=== PATIENT | female | born 1955 | race Caucasian/White ===

== ENCOUNTER 2019-07-28 17:00 | Observation (INO) | payer OTHER ==
[~2019-07-28] VITALS: Ht 157.5 cm; Wt 68.0 kg
[~2019-07-28 17:00] MED LIST: SYNTHROID112 MCG PO
--- OUTSIDE RECORDS SUMMARY | 2019-07-28 17:03 | XMS REPORT ---
Author Author [facility] Address Unknown Phone Unavailable Care Team Providers Care Manager Process Improvement Name Role Phone ABHISHEK BURK Unavailable Unavailable Payers Payer Name Policy Type Policy Number Effective Date Expiration Date Problems This patient has no known problems. Allergies, Adverse Reactions, Alerts Allergy Name Allergy Type Status Severity Reaction(s) Onset Date Inactive Date Treating Clinician Comments No Known Allergies DA Active U 2018-07-29 00:00:00 No Known Allergies DA Active U 2011-08-19 00:00:00 Medications This patient has no known medications. Results Test Description Test Time Test Comments Text Results Atomic Results Result Comments LIPID PROFILE (CORONARY RISK) 2018-07-30 19:44:00 TRIGLYCERIDES (test code=TRIG) 148 mg/dL 20-150 CHOLESTEROL (test code=CHOL) 218 mg/dL 0-200 CHOLESTEROL/HDL RATIO (test code=CHOLHDL) 4.0 RATIO 0-4.9 RISK ASSOCIATED WITH CHOL/HDL RATIOS: Risk Male Female1/2 AVERAGE 3.43 3.27AVERAGE 4.97 4.442X AVERAGE 9.55 7.053X AVERAGE 23.39 11.04 REFERENCE VALUE IS RELATED TO RISK LEVELS ASRECOMMENDED BY THE [facility]. HEART, LUNG, AND BLOOD INST. HDL CHOLESTEROL (test code=HDL) 53 mg/dL 40-60 LIPOPROTEIN LDL (test code=LDL) 133 mg/dL 100-129 RN PERSONNEL, CONTACT PHYSICIAN IMMEDIATELY IF THIS IS A STROKE, AMI OR CAROTID STENOSIS PATIENT WHEN THE LDL >100 (1ST OCCURENCE, THIS ADMISSION) Reference Interval: mg/dL mmol/L Optimal <100 <2.6Near/above optimal 100-129 2.6- 3.3Borderline High 130-159 3.4-4.1High 160-189 4.1-4.9Very High >=190 >=4.9=========This LDL result is a direct measurement.========= - MRI C-SPINE W/O [id number] 10:30:00 FAX: Mike Chiledrs MD [phone] [place]: St: [facility] FAX: Abhishek Harmon MD [phone] Name: PETRONA SCHULZ [facility] : 1955 Age/S: 62/F [address] [facility] Unit #: [id number] Loc: [address] [place] [address] Phys: Mike Dang MD Acct: [id number] Dis Date: Status: ADM IN PHONE #: [phone] Exam Date: 07/30/2018 0900 FAX #: [phone] Reason: neck pain EXAMS: CPT CODE: [id number] MRI C-SPINE W/O CONT 85917 HISTORY: Neck pain. COMPARISON: None available. MRI cervical spine without contrast: Automated exposure control. No cerebellar ectopia. No cord compression, syrinx or myelomalacia. Vertebral body heights are maintained. Bone marrow signal is normal. No prevertebral soft tissue swelling. Disc spaces are preserved. At C2-C3 level no disc herniation, canal or foraminal stenosis. At C3-C4 level no disc herniation, canal or foraminal stenosis. At C4-C5 level no disc herniation, canal or foraminal stenosis. At C5-C6 level no disc herniation, canal or foraminal stenosis. At C6-C7 level no disc herniation, canal or foraminal stenosis. At C7-T1 level no disc herniation, canal or foraminal stenosis. IMP RESSION: No disc herniation, canal or foraminal stenosis. No cord compression, syrinx or myelomalacia. Vertebral body heights are maintained. Bone marrow signal is normal. At C7-T1 level no disc herniation, canal or foraminal stenosis. Electronic ally Signed by Farzad Osman on 07/30/2018 at 1030 R eported and signed by: Raul Osman M.D. CC: Mike Dang; Leisa Burk MD Technologist: ROSA M WALLSRT - MRI [facility] Date/Time/By: 07/30/2018 (1030) : By: [email or web address] Orig Print D/T: S: 07/30/2018 (2555) PAGE 1 Signed Report - MRI BRAIN W/O CONTRAST 2018-07-30 09:25:00 FAX: Juan Ramon Benavides MD [phone] [place]: St: [facility] FAX: Mike Childers MD [phone] FAX: Abhishek Harmon MD [phone] Name: PETRONA SCHULZ [facility] : 1955 Age/S: 62/F [address] [facility] Unit #: [id number] Loc: [address] [place] [address] Phys: Juan Ramon Pearson MD Acct: [id number] Dis Date: Status: ADM IN ONE #: [phone] Exam Date: 07/30/2018 0845 FAX #: [phone] Reason: Syncope/?CVA EXAMS: CPT CODE: [id number] MR I BRAIN W/O CONTRAST 10274 HISTORY: Synco pe and CVA. COMPARISON: Head CT from previous day. M RI brain without contrast: Small acute lacunar infarct in the left frontal parietal centrum semiovale white matter. No large territorial vas cular infarction. No MR evidence for hemorrhage is noted. No extra-axial f luid collections are noted. Mild periventricular white matter ischemic khushi nges scattered lesions in bilateral centrum semiovale white matter. No herniation, hydrocephalus or midline shift. Fourth ventricle is midline. Expected flow-voids are noted within the major intracranial vasculature. VII and VIII nerve complex are symmetrical and normal. Mast oid air cells are clear. Sinuses straightening no air-fluid levels. The in traorbital contents are unremarkable. Midbrain, yuki and medulla a re without mass effect. No cerebellar ectopia. Pituitary gland, optic sussy sm and corpus callosum are normal. Clivus with normal marrow signal symmet rical hippocampi without mesial temporal sclerosis. IMPRES CLINT: Acute lacunar infarct in the left frontal/parietal centr um semiovale white matter. Chronic white matter ischemic disease in the cortical and the subcortical deep white. Electronically Sign ed by Farzad Osman on 07/30/2018 at 0925 Reported a nd signed by: Raul Osman M.D. CC: Juan Ramon Pearson MD; Mike Dang Deepak MD Technologist: ROSA M WALLSRT - MRI [facility] Date/Time/By: 07/30/2018 (0925) : By: [email or web address] Orig Print D/T: S: 07/30/2018 (2773) PAGE 1 Signed Report [id number] 18:37:00* Test Item Value Reference Range Comments TROPONIN-I (test code=TROPI) 0.106 ng/mL 0-0.045 COMMENTS TO HOME WEATHERIZING WORKER: COLLECT 3 HOURS AFTER PREVIOUS [id number] 14:02:00* Test Item Value Reference Range Comments TROPONIN-I (test code=TROPI) 0.126 ng/mL 0-0.045 Results called to [id number]\RF Arrays V.LAB.KN 07/29/18 1402Critical results verified and read back by Nurse? Y COMMENTS TO HOME WEATHERIZING WORKER: COLLECT 3 HOURS AFTER PREVIOUS [id number] 14:02:00* Test Item Value Reference Range Comments TROPONIN-I (test code=TROPI) 0.126 ng/mL 0-0.045 Results called to [id number]\RF Arrays V.LAB.[facility] 07/29/18 1402Critical results verified and read back by Nurse? Y COMMENTS TO HOME WEATHERIZING WORKER: COLLECT 3 HOURS AFTER PREVIOUS SAMPLEURINALYSIS [id number] 12:13:00* Test Item Value Reference Range Comments UA COLOR (test code=COLU) LIGHT YELLOW YELLOW UA APPEARANCE (test code=APPU) CLEAR CLEAR UA GLUCOSE DIPSTICK (test code=DGLUU) NEGATIVE mg/dL NEGATIVE UA BILIRUBIN DIPSTICK (test code=BILU) NEGATIVE mg/dL NEGATIVE UA KETONE DIPSTICK (test code=KETU) NEGATIVE mg/dL NEGATIVE UA SPECIFIC GRAVITY (test code=SGU) 1.011 1.001-1.035 UA BLOOD DIPSTICK (test code=CARLOS) 1+ (Small) mg/dL NEGATIVE UA PH DIPSTICK (test code=NAHID) 6.0 5.0-8.0 UA PROTEIN DIPSTICK (test code=PROU) NEGATIVE mg/dL NEGATIVE UA UROBILINIOGEN DIPSTICK (test code=URO) NEGATIVE mg/dL NEGATIVE UA NITRITE DIPSTICK (test code=SHEYLA) NEGATIVE NEGATIVE UA LEUKOCYTE ESTERASE W REFLEX (test code=LEUUR) NEGATIVE Mar/uL NEGATIVE UA WBC (test code=WBCU) 0-5 per HPF 0-5 UA RBC (test code=RBCU) 0-2 #/HPF 0-5 UA EPITHELIAL CELLS (test code=EPIU) FEW per HPF FEW UA BACTERIA (test code=BACU) MANY #/HPF NONE UA HYALINE CAST (test code=HYALU) 6-10 #/LPF 0-5 UA MUCUS (test code=MUCU) FEW #/LPF FEW Urine Source? Clean CatchDRUGS OF ABUSE SCREEN [id number] 12:13:00* Test Item Value Reference Range Comments URN COCAINE (test code=COCAURN) NEGATIVE <300 ng/mL URN CANNABINOIDS (test code=CANNABURN) NEGATIVE <50 ng/mL URN AMPHETAMINE (test code=AMPHETURN) NEGATIVE <1000 ng/mL URN BARBITURATE (test code=BARBITURN) NEGATIVE <200 ng/mL URN BENZODIAZEPINE (test code=BENZOURN) NEGATIVE <200 ng/mL URN OPIATES (test code=OPIATURN) POSITIVE <300 ng/mL This test provides only a preliminary test result. A morespecific alternate chemical method must be used in order toobtain a confirmed analytical result. Gas chromatography/mass spectrometry (GC/MS) is thepreferred confirmatory method. Other chemical confirmationmethods are available. Clinical consideration and professional judgment should be applied to any drug of abusetest result, particularly when preliminary positive resultsare used.Unconfirmed screening results must not be used fornon-medical purposes (e.g., employment testing, legaltesting). URN PHENCYCLIDINE (PCP) (test code=PHENCURN) NEGATIVE <25 ng/mL URN METHADONE (test code=METHAURN) NEGATIVE <300 ng/mL Urine Source? Clean CatchURINALYSIS [id number] 11:41:00* Test Item Value Reference Range Comments UA COLOR (test code=COLU) LIGHT YELLOW YELLOW UA APPEARANCE (test code=APPU) CLEAR CLEAR UA GLUCOSE DIPSTICK (test code=DGLUU) NEGATIVE mg/dL NEGATIVE UA BILIRUBIN DIPSTICK (test code=BILU) NEGATIVE mg/dL NEGATIVE UA KETONE DIPSTICK (test code=KETU) NEGATIVE mg/dL NEGATIVE UA SPECIFIC GRAVITY (test code=SGU) 1.011 1.001-1.035 UA BLOOD DIPSTICK (test code=CARLOS) 1+ (Small) mg/dL NEGATIVE UA PH DIPSTICK (test code=NAHID) 6.0 5.0-8.0 UA PROTEIN DIPSTICK (test code=PROU) NEGATIVE mg/dL NEGATIVE UA UROBILINIOGEN DIPSTICK (test code=URO) NEGATIVE mg/dL NEGATIVE UA NITRITE DIPSTICK (test code=SHEYLA) NEGATIVE NEGATIVE UA LEUKOCYTE ESTERASE W REFLEX (test code=LEUUR) NEGATIVE Mar/uL NEGATIVE UA WBC (test code=WBCU) 0-5 per HPF 0-5 UA RBC (test code=RBCU) 0-2 #/HPF 0-5 UA EPITHELIAL CELLS (test code=EPIU) FEW per HPF FEW UA BACTERIA (test code=BACU) MANY #/HPF NONE UA HYALINE CAST (test code=HYALU) 6-10 #/LPF 0-5 UA MUCUS (test code=MUCU) FEW #/LPF FEW Urine Source? Clean CatchDRUGS OF ABUSE SCREEN [id number] 11:41:00* Test Item Value Reference Range Comments URN COCAINE (test code=COCAURN) <300 ng/mL URN CANNABINOIDS (test code=CANNABURN) <50 ng/mL URN AMPHETAMINE (test code=AMPHETURN) <1000 ng/mL URN BARBITURATE (test code=BARBITURN) <200 ng/mL URN BENZODIAZEPINE (test code=BENZOURN) <200 ng/mL URN OPIATES (test code=OPIATURN) <300 ng/mL URN PHENCYCLIDINE (PCP) (test code=PHENCURN) <25 ng/mL URN METHADONE (test code=METHAURN) <300 ng/mL Urine Source? Clean CatchURINALYSIS [id number] 11:39:00* Test Item Value Reference Range Comments UA COLOR (test code=COLU) LIGHT YELLOW YELLOW UA APPEARANCE (test code=APPU) CLEAR CLEAR UA GLUCOSE DIPSTICK (test code=DGLUU) NEGATIVE mg/dL NEGATIVE UA BILIRUBIN DIPSTICK (test code=BILU) NEGATIVE mg/dL NEGATIVE UA KETONE DIPSTICK (test code=KETU) NEGATIVE mg/dL NEGATIVE UA SPECIFIC GRAVITY (test code=SGU) 1.011 1.001-1.035 UA BLOOD DIPSTICK (test code=CARLOS) 1+ (Small) mg/dL NEGATIVE UA PH DIPSTICK (test code=NAHID) 6.0 5.0-8.0 UA PROTEIN DIPSTICK (test code=PROU) NEGATIVE mg/dL NEGATIVE UA UROBILINIOGEN DIPSTICK (test code=URO) NEGATIVE mg/dL NEGATIVE UA NITRITE DIPSTICK (test code=SHEYLA) NEGATIVE NEGATIVE UA LEUKOCYTE ESTERASE W REFLEX (test code=LEUUR) NEGATIVE Mar/uL NEGATIVE UA WBC (test code=WBCU) per HPF 0-5 Urine Source? Clean CatchDRUGS OF ABUSE SCREEN [id number] 11:39:00* Test Item Value Reference Range Comments URN COCAINE (test code=COCAURN) <300 ng/mL URN CANNABINOIDS (test code=CANNABURN) <50 ng/mL URN AMPHETAMINE (test code=AMPHETURN) <1000 ng/mL URN BARBITURATE (test code=BARBITURN) <200 ng/mL URN BENZODIAZEPINE (test code=BENZOURN) <200 ng/mL URN OPIATES (test code=OPIATURN) <300 ng/mL URN PHENCYCLIDINE (PCP) (test code=PHENCURN) <25 ng/mL URN METHADONE (test code=METHAURN) <300 ng/mL Urine Source? Clean CatchB-TYPE NATRIURETIC [id number] 09:56:00* Test Item Value Reference Range Comments B-TYPE NATRIURETIC PEPTIDE (test code=BNP) 7.73 pgram/mL 0-100 BASIC METABOLIC [id number] 09:04:00* Test Item Value Reference Range Comments SODIUM (test code=NA) 142 mmol/L 136-145 POTASSIUM (test code=K) 3.5 mmol/L 3.5-5.1 CHLORIDE (test code=CL) 110.0 mmol/L 98-107 CARBON DIOXIDE (test code=CO2) 22.0 mmol/L 21-32 ANION GAP (test code=GAP) 13.5 10-20 GLUCOSE (test code=GLU) 159 mg/dL 74-106 BLOOD UREA NITROGEN (test code=BUN) 15 mg/dL 7-18 GLOMERULAR FILTRATION RATE (test code=GFR) 56 mL/min >=60 Estimated GFR by using Modified MDRD formula.Chronic kidney disease is defined as either kidney damageor GFR <60 mL/min/1.73 m2 for >3 months. CREATININE (test code=CREAT) 1.00 mg/dL 0.55-1.02 Note change in reference range due to change in reagent. BUN/CREATININE RATIO (test code=BUN/CREA) 15.0 10-20 CALCIUM (test code=CA) 8.9 mg/dL 8.5-10.1 HEPATIC FUNCTION [id number] 09:04:00* Test Item Value Reference Range Comments TOTAL PROTEIN (test code=PROT) 7.3 gram/dL 6.4-8.2 ALBUMIN (test code=ALB) 3.9 g/dL 3.4-5.0 GLOBULIN (test code=GLOB) 3.4 gram/dL 2.7-4.2 ALBUMIN/GLOBULIN RATIO (test code=A/G) 1.2 0.75-1.50 BILIRUBIN TOTAL (test code=BILT) 0.40 mg/dL 0.0-1.0 BILIRUBIN DIRECT (test code=BILD) 0.08 mg/dL 0.0-0.20 SGOT/AST (test code=AST) 12 IUnit/L 15-37 SGPT/ALT (test code=ALT) 17 IUnit/L 12-78 ALKALINE PHOSPHATASE TOTAL (test code=ALKP) 79 IUnit/L 45-117 Note change in reference range due to change in reagent. [id number] 09:04:00* Test Item Value Reference Range Comments LIPASE (test code=LIP) 120 U/L 73.0-393.0 [id number] 09:04:00* Test Item Value Reference Range Comments MAGNESIUM (test code=MAG) 2.4 mg/dL 1.8-2.4 THYROID PROFILE [id number] 09:04:00* Test Item Value Reference Range Comments T3 UPTAKE (test code=T3UP) 34.0 % 30.0-40.0 T4 (THYROXINE) (test code=T4) 11.6 ug/dL 4.5-13.9 T7 (FREE THYROXINE INDEX) (test code=T7) 3.94 FTI 1.3-5.1 THYROID STIMULATING HORMONE (test code=TSH) 33.000 uIU/mL 0.36-3.74 TSH REFERENCE RANGES: EUTHYROID: 0.35 - 4.3 mIU/mL HYPO : > 5.5 mIU/mL HYPER : < 0.35 mIU/mL [id number] 09:04:00* Test Item Value Reference Range Comments TROPONIN-I (test code=TROPI) <0.015 ng/mL 0-0.045 - CT HEAD/BRAIN W/O [id number] 08:53:00 Name: PETRONA SCHULZ [facility] : 1955 Age/S: 62 / F [address] Unit #: [id number] Loc: [place] [address] Phys: Jorge Luis Cat MD Acct: [id number] Dis Date: Status: REG ER PHONE #: [phone] Exam Date: 07/29/2018845 FAX #: [phone] Reason: syncope, fall, possible new onset seizure EXAMS: CPT CODE: [id number] CT HEAD/BRAIN W/O CONT 11668 HISTORY: Syncope and fall. COMPARISON: None available. CT brain without contrast: Automated exposure control. No acute intracranial bleeds or extra-axial collections are noted. No acute territorial vascular infarction is noted. The sulci, gyri, ventricles and subarachnoid spaces and the basilar cisterns are normal for patient's age. No herniation or hydrocephalus or midline shift is noted. Mild periventricular ischemic gliosis is noted. Age-appropriate atrophy is noted as well. Portions of the visualized paranasal sinuses are normal. No obvious bony calvarial defect is noted. IMPRESSION: No acute intracranial bleeds or extra-axial collections. No acute territorial vascular infarction. No herniation or hy drocephalus or midline shift. Chronic white matter ischemic d isease and atrophy . at 0853 Reported and kailey d by: Raul Osman M.D. CC: Jorge Luis Cat MD Technologist:Jeffrey Moreland RT(R)(CT) CTDI: DLP: Trnscb Date/Time: 07/29/2018 (0853) [email or web address] Orig Print D/T: S: 07/29/2018 (0856) CTDI: DLP: PAGE 1 Signed Report - XR CHEST 1 [id number] 08:40:00 FAX: Jorge Luis Cat [place]: B St: REG Name: PETRONA PHOENIX [facility] : [birth year] Age/S: 62/F [address] Unit #: [id number] Loc: [place] [address] Phys: Jorge Luis Cat MD Acct: [id number] Dis Date: Status: REG ER PHONE #: [phone] Exam Date: 07/29/2018829 FAX #: [phone] Reason: CHEST PAIN EXAMS: CPT CODE: [id number] XR CHEST 1 V 27509 HISTORY: Chest pain. COMPARISON: None available. No acute infiltrates, effusion or con gestion is noted. The cardiac and mediastinal silhouette are withi n normal limits. IMPRESSION: No acute infilt rates, effusion or congestion. at 0840 Reported and signed by: Argentina Osman M.D. CC: Jorge Luis Cat MD Technologist: Sussy Velázquez(Theodore); STUDENT TECHNOLOGIST Trnscrd Date/Time/By: 07/29/2018 (0840) : By: [email or web address] Orig Print D/T: S: 07/29/2018 (0467) PAGE 1 Signed Report CBC W/O [id number] 08:24:00 * Test Item Value Reference Range Comments WHITE BLOOD CELL (test code=WBC) 12.5 K/mm3 4.5-12.5 RED BLOOD CELL (test code=RBC) 4.58 mill/mm3 3.7-5.2 HEMOGLOBIN (test code=HGB) 14.4 gram/dL 11.5-15.5 HEMATOCRIT (test code=HCT) 45.2 % 36.0-46.0 MEAN CELL VOLUME (test code=MCV) 98.7 fL 80-98 MEAN CELL HGB (test code=MCH) 31.4 picogram 27.0-33.0 MEAN CELL HGB CONCETRATION (test code=MCHC) 31.9 gram/dL 33.0-36.0 RED CELL DISTRIBUTION WIDTH (test code=RDW) 13.3 % 11.6-16.2 PLATELET COUNT (test code=PLT) 359 K/mm3 150-450 MEAN PLATELET VOLUME (test code=MPV) 9.1 fL 6.7-11.0 CT BRAIN WO [place] [address] Patient Name: PETRONA SCHULZ MR #: [id number] : 1955 Age/Sex: 61/F Req #: [id number] Adm Physician: Ordered by: ABHISHEK BURK MD Report #: [id number] Location: CT Room/Bed: Procedure: [id number] CT/CT BRAIN WO Exam Date : 02/08/17 Exam Time: 1029 REPORT STATUS: Kailey d EXAMINATION: Head CT HISTORY: Right facial numbness for last 2 days COMPARISON: None. TECHNIQUE: Multidetector axial images were obtained without contrast from the foramen magnum to the vertex . The images were reconstructed using brain and bone algorithms. Thin section brain images were reformatted into coronal and sagittal planes. Intravenous contrast: None. Motion/str eaking artifact limits the evaluation of the skull base and posterior cranial fossa. FINDINGS: Parenchyma: 1. Nonspecific approximately 1 c m discrete oval-shaped hypodensity in the left inferior parietal and right mid dle frontal gyrus juxtacortical white matter may represent nonspecific chronic microvascular ischemic changes, other consideration would include acute vascu lar insult, or demyelinating processes given the distribution of the lesions a nd otherwise unremarkable brain parenchyma. 2. No mass or hemorrhage. No CT evidence of acute territorial vascular insult. Extra-axial spa rex:No abnormal density. No extra-axial fluid collections Brain volume: Normal for age. Ventricles: No hydrocephalus or displacement. A rteries: No density suggestive of thrombus. Dural sinuses: No abnormal d ensity. Extra-axial spaces: No abnormal density. Foramen magnum: No mass, Chiari malformation, or basilar invagination. Sella: No obvious mass. Paranasal/mastoid sinuses: Imaged portions unremarkable. Skull/Scalp: No lytic or blastic lesions. No fractures. IMPRESSION: Nonspecific hypodensities in the right frontal and left parietal juxtacortical white matter, which may represent chronic microvascular ischemic changes, h owever acute ischemia or perhaps demyelinating process are also a consideratio n only in the appropriate clinical setting, a brain MRI without and with contr ast is recommended for further evaluation. Signed by: Dr. Leslie Deluna M.D. on 02/08/2017 11:20 AM Dictated By: LESLIE DELUNA MD 1120 Transcribed By: LIVIER on 02/08/17 1120 COPY TO: ABHISHEK BURK MD
--- NOTE | 2019-07-28 17:08 | NUR ---
ATTEMPTED TO TAKE PATIENT TO ER ROOM 3 AFTER TRIAGE - PATIENT BECAME INVOLVED IN A CONVERSATION WITH HER , AND WOULD NOT COME TO THE ROOM. PATIENT REQUESTED SOME TIME TO SPEAK WITH HER AND THEN WOULD COME TO THE ROOM WHEN SHE WAS READY.
[2019-07-28 18:18] LABS: BASOPHILS % 0.5 % (0.0-1.0); EOSINOPHILS # (AUTO) 0.1 (0.0-0.4); EOSINOPHILS % 1.1 % (0.0-6.0); HEMATOCRIT 42.3 % (34.2-44.1); HEMOGLOBIN 14.5 g/dL (12.0-16.0); LYMPHOCYTES # (AUTO) 1.4 (1.0-3.2); LYMPHOCYTES % 19.2 % (18.0-39.1); MEAN CORPUSCULAR HEMOGLOBIN 31.9 pg (28-32); MEAN CORPUSCULAR HGB CONC 34.3 g/dL (31-35); MONOCYTES # (AUTO) 0.5 (0.2-0.8); MONOCYTES % 6.8 % (4.4-11.3); NEUTROPHILS # (AUTO) 5.3 (2.1-6.9); NEUTROPHILS % 72.1 % (38.7-80.0); PLATELET COUNT 348 x10e3/uL (140-360); RED BLOOD COUNT 4.55 x10e6/uL (3.6-5.1); RED CELL DISTRIBUTION WIDTH 13.5 % (11.7-14.4)
--- NOTE | 2019-07-28 18:19 | Diagnostic Imaging Report ---
CT BRAIN WO HISTORY: Trouble with speech COMPARISON: Head CT report dated 02/08/2017 (images not available at time of dictation) Technique: Noncontrast axial scans were obtained from skull base to the vertex. Coronal and sagittal reconstructions obtained from the axial data. One or more of the following dose reduction techniques were used: Automated exposure control, adjustment of the mA and/or kV according to patient size, and/or utilization of iterative reconstruction technique. DISCUSSION: Scalp/Skull: Unremarkable. Brain sulci: Mildly prominent. Ventricles: Compensatory dilatation. Extra-axial spaces: No masses or fluid collections. Carotid siphon calcifications are present. Parenchyma: Focal hypodensities in the right anterior centrum semiovale, right anterior nguyen radiata, and left nguyen radiata may be due to age indeterminate ischemia; there is no significant mass effect or associated acute hemorrhage. Hypodensities were seen in these regions per prior report; however, any changes cannot be evaluated since prior images are not available for review. Mild bilateral deep white matter hypodensity is likely chronic microvascular ischemic change. Otherwise, no masses, hemorrhage, or large vascular territory acute infarct. Dural sinuses: No abnormal densities. Sellar/Suprasellar region: Intact. Skull base: Intact. Incidental findings: None. IMPRESSION: 1. Focal hypodensities in the right anterior centrum semiovale, right anterior nguyen radiata, and left nguyen radiata may be due to age indeterminate ischemia or demyelination. Hypodensities were seen in these regions per prior report; however, any changes cannot be evaluated since prior images are not available for review. 2. No other acute intracranial abnormalities. 3. Mild supratentorial chronic microvascular ischemic change. Mild generalized cerebral volume loss. Signed by: Dr. Gordo Moore M.D. on 07/28/2019 6:16 PM
[2019-07-28 18:36] LABS: INR 0.81; PARTIAL THROMBOPLASTIN TIME 25.6 seconds (23.8-35.5); PROTHROMBIN TIME 11.7 seconds (11.9-14.5)
--- NOTE | 2019-07-28 18:36 | Diagnostic Imaging Report ---
EXAMINATION: CHEST 2 VIEWS INDICATION: ^WEAK ^[id number] ^[id number] COMPARISON: Chest radiograph 06/09/2012 FINDINGS: PA and lateral views TUBES and LINES: None. LUNGS: Lungs are well inflated. Lungs are clear. There is no evidence of pneumonia or pulmonary edema. PLEURA: No pleural effusion or pneumothorax. HEART AND MEDIASTINUM: The cardiomediastinal silhouette is unremarkable. BONES AND SOFT TISSUES: No acute osseous lesion. Soft tissues are unremarkable. UPPER ABDOMEN: No free air under the diaphragm. IMPRESSION: No acute thoracic abnormality. Signed by: Dr. Kate Lombardi M.D. on 07/28/2019 6:33 PM
[2019-07-28 18:46] LABS: ALANINE AMINOTRANSFERASE 22 IU/L (0-55); ALBUMIN 3.7 g/dL (3.5-5.0); ALBUMIN/GLOBULIN RATIO 1.3 (0.8-2.0); ALKALINE PHOSPHATASE 65 IU/L (40-150); ANION GAP 13.3 mmol/L (8-16); BLOOD UREA NITROGEN 14 mg/dL (7-26); BUN/CREATININE RATIO 14 (6-25); CALCIUM 9.5 mg/dL (8.4-10.2); CARBON DIOXIDE 24 mmol/L (22-29); CHLORIDE 108 mmol/L (98-107); CREATINE KINASE 40 IU/L (29-168); CREATININE, SERUM 0.99 mg/dL (0.57-1.11); EST GLOMERULAR FILTRATION RATE 56 ML/MIN (60-); GLUCOSE 113 mg/dL (74-118); POTASSIUM 4.3 mmol/L (3.5-5.1); SODIUM 141 mmol/L (136-145)
--- NOTE | 2019-07-28 20:15 | NUR ---
Patient was brought to the unit from er in a wheel chair.aaox4.assessment done.no resp.distress .no pain voiced.tele #[address] sinus rhythm.oriented to the unit.bed locked and in lowest position.phone and call light within reach.instructed to call for assistance as needed.as per the report from er carotid doppler to be done morning .
[2019-07-28 20:35] VITALS: BP 90/60
[2019-07-28 21:00] VITALS: BP 156/64
[2019-07-28 23:00] VITALS: BP 156/64
[2019-07-29] VITALS: BP 96/57
[2019-07-29] MEDS ORDERED: ACETAMINOPHEN 325 MG TAB PO ONE (01:15)
[2019-07-29] MEDS ORDERED: ACETAMINOPHEN 325 MG TAB PO PRN (02:30)
[2019-07-29 04:00] VITALS: BP 94/54
[2019-07-29 06:00] LABS: CREATINE KINASE 28 IU/L (29-168)
--- NOTE | 2019-07-29 07:05 | NUR ---
Bed side shift report given to oncoming RN.stable condition.
[2019-07-29 07:25] LABS: CHOL/HDL RATIO 3.1 (3.0-3.6)
[2019-07-29] MEDS ORDERED: LEVOTHYROXINE SODIUM 112 MCG TAB PO SCH (07:45)
[2019-07-29 07:47] LABS: FREE THYROXINE INDEX 2.2862 (1.4-3.8); THYROID STIMULATING HORMONE 3.483 uIU/mL (0.350-4.940)
[2019-07-29 08:15] VITALS: BP 96/52
--- NOTE | 2019-07-29 08:25 | History and Physical ---
CHIEF COMPLAINT: The patient is a 63-year-old lady, who comes in with momentary aphasia. HISTORY OF PRESENTING ILLNESS: Ms. Ewing with a history of previous TIA, has history of CVA, and was in usual state of health until the patient is having no complaints. Talking to her and suddenly for a period of 30-40 seconds, the patient had a period of aphasia where nothing could come out. The patient had global aphasia and lasted about 30 seconds according the patient. The patient went into a panic mode, anxiety kicked in, the patient started looking for other signs. No other signs were seen. The patient did not have any weakness, focal weakness, or any visual disturbances. Gait was normal at that time and no swallowing difficulties at that time. This made the patient newsome into the hospital, was admitted to the hospital for TIA, rule out CVA. PAST MEDICAL HISTORY: History of TIA, history of CVA, history of hypothyroidism. PAST SURGICAL HISTORY: Noncontributory. MEDICATIONS: She takes at home levothyroxine 112 mcg. No statins were taken at this time. ALLERGIES: NO DRUG ALLERGIES NOTED. SOCIAL HISTORY: No EtOH. Nonsmoker and lives with in good social support. FAMILY HISTORY: Positive for hypertension and hyperlipidemia. REVIEW OF SYSTEMS: Negative for chest pain. No shortness of breath. No palpitation. No signs of fluid overload. No nausea, no vomiting. No diarrhea. No constipation. No rectal bleeding. No hematochezia. No hematemesis. Positive for anxiety from time to time. PHYSICAL EXAMINATION: VITAL SIGNS: Temperature is 96.5, pulse of 16, respirations of 18, blood pressure is 94/54, pulse oximetry of 95%. HEENT: Normocephalic, atraumatic. Cranial nerves are normal. CVS: S1 and S2 normal. Regular rate and rhythm. LUNGS: Clear to auscultation. ABDOMEN: Nontender and nondistended. EXTREMITIES: No clubbing, no cyanosis, no edema. NEUROLOGICAL: Normal. Cranial nerves normal. Speech is normal. Gait normal. The patient's reflexes are within normal limits on all four extremities. Strength is normal in all four extremities. However, the patient does notice some weakness in the left side, which is residual from the last CVA. IMAGING STUDIES: Brain CT done yesterday showed; 1. Focal hyperdensities in the right anterior centrum semiovale. 2. Right anterior nguyen radiata and left nguyen radiata and hyperdensities resurgence per prior report. 3. Mild supratentorial chronic microvascular ischemic changes mildly generalized cerebral volume loss. 4. Chest x-ray, no acute thoracic abnormalities. ASSESSMENT: Ms. Faviola Ewing with; 1. Transient ischemic attack and documented cerebrovascular accident in the past. 2. Hypothyroidism. 3. Focal weakness. 4. Anxiety. PLAN: MRI has done already will be read. We will do an echocardiogram and carotid Doppler. Neurology consult in lieu of her multiple CT findings. Aspirin is instituted. We will also start the patient on atorvastatin 20 mg at nighttime. Continue to monitor the patient. Further recommendation per clinical course and the patient can be discharged if it is okay with Neurology. Aspirin and statin will be written for further recommendation per clinical course. We will continue to monitor the patient. MD EMILIANO Rojas/MODL /[id number]
[2019-07-29 08:41] VITALS: BP 96/52
[2019-07-29] MEDS ORDERED: ASPIRIN 81 MG CHEW TAB PO SCH (09:00)
--- NOTE | 2019-07-29 10:40 | NUR ---
Pt unavailable at this time. outside plant technician performing procedure bedside. I will follow up as able. TIGRE COLIN Market Research Intern [facility] Care Department O: [phone]
[2019-07-29 12:00] VITALS: BP 105/60
[2019-07-29 14:05] LABS: CREATINE KINASE 34 IU/L (29-168)
--- NOTE | 2019-07-29 15:15 | Diagnostic Imaging Report ---
History: Transient ischemic attack, loss of speech. Comparison studies: CT head from 07/28/2019 and 02/08/2017. Technique: Sagittal T2; axial DWI, FLAIR, GRE, FLAIR, T2, T1, Coronal FLAIR. Intravenous contrast: None Findings: Scalp: Normal in signal. No masses . Bone marrow: Normal in signal intensity. Brain sulci: Prominent. Ventricles: Mild compensated dilatation due to volume loss . No hydrocephalus . Parenchyma: T2/FLAIR patchy and confluent hyperintensity in right middle frontal gyrus subcortical white matter, frontal nguyen radiata/centrum semiovale and left periatrial white matter represents chronic encephalomalacia related to prior vascular insult or demyelinating disease. Nonspecific few, scattered supratentorial white matter T2/FLAIR hyperintense foci are likely related to small vessel ischemic changes. No masses, hemorrhage, acute or chronic vascular insults. Suprasellar region: No abnormalities. Craniocervical junction: Patent foramen magnum. No Chiari malformation . Vessels: Normal flow-voids in the arteries and sinuses. Incidental finding: Small amount of T2 hyperintense fluid in right mastoid air cells. IMPRESSION: 1. No acute intracranial abnormality. 2. Mild supratentorial white matter microvascular ischemic changes. 3. Chronic encephalomalacia in right middle frontal gyrus, frontal nguyen radiata, centrum semiovale and left periatrial white matter possibly representing a sequel of prior vascular insult vs demyelinating disease. 4. Mild generalized cerebral volume loss. Signed by: Dr. Theodora Alexandra M.D. on 07/28/2019 10:10 PM
[2019-07-29 16:17] VITALS: BP 110/75
[2019-07-29] MEDS ORDERED: ATORVASTATIN CA20 MG PO (17:59)
--- NOTE | 2019-07-29 18:20 | NUR ---
Carotid Doppler,Echo AND MRI results notified to Dr Dang, discharge order recvd, patient discharged home, prescription given, IV canula removed with Tip intact, not in any distress, denies any pain, family in front to pick her
== END 2019-07-29 18:28 | disposition home or self-care (01) ==
LOC: ER 17:00 → ERHOLD 19:08 → MED/SURG2 20:20
PROVIDERS: ADMIT Family Medicine; ATTEND Family Medicine
DX: G45.9 Transient cerebral ischemic attack, unspecified (principal); Z82.49 Family history of ischemic heart disease and other diseases of the circulatory system; E03.9 Hypothyroidism, unspecified; F41.9 Anxiety disorder, unspecified; Z86.73 Personal history of transient ischemic attack (TIA), and cerebral infarction without residual deficits
CPT/HCPCS: 36415 ×2; 70450; 70551; 71046; 80053; 80061; 82550 ×2; 82553 ×2; 84436; 84443; 84479; 84484 ×2; 85025; 85610; 85730; 93005; 93306; 93880; 99284; G0378 ×2

== ENCOUNTER 2020-02-03 08:59 | Emergency (ER) | payer SELFPAY ==
[~2020-02-03] VITALS: Ht 157.5 cm; Wt 70.3 kg
[~2020-02-03 08:59] MED LIST changes: +ATORVASTATIN CA20 MG PO
--- NOTE | 2020-02-03 09:26 | Emergency Department Note ---
History of Present Illnes History of Present Illness Chief Complaint: General Medicine Complaints History of Present Illness This is a 64 year old female PATIENT IN FROM HOME WITH COMPLAINTS OF FOREHEAD NUMBNESS STARTING LAST NIGHT; DENIES ANY PAIN OR INJURY. STATES PAST MEDICAL HISTORY OF TIA AND [facility] PALSY. PATIENT STATES SHE CALLED HER PCP AND THEY SENT HER TO THE ER FOR EVALUATION, SAYS THEY WANTED HER TO HAVE CT. PATIENT DENIES ANY DIZZINESS, NAUSEA, VOMITING, PAIN. PATIENT ALERT AND ORIENTED, RESP EVEN AND NONLABORED, APPEARS IN NO DISTRESS, AMBULATORY WITHOUT ASSISTANCE. Historian: Patient Arrival Mode: Car Test Man Required: No Onset (how long ago): hour(s) Location: FOREHEAD Quality: NUMBNESS Radiation: Reports non-radiation Severity: mild Onset quality: gradual Timing of current episode: constant Progression: unchanged Chronicity: new Context: Denies recent illness Relieving factors: none Exacerbating factors: none Associated symptoms: Reports denies other symptoms; Denies weakness Past Medical/Family History Physician Review I have reviewed the patient's past medical and family history. Any updates have been documented here. Past Medical History Recent Fever: No Clinical Suspicion of Infectio: No New/Unexplained Change in Ment: No Past Medical History: CVA, TIA, Hypothyroidism Other Medical History: FA[facility]'S PALSY Past Surgical History: None Social History Smoking Cessation: Never Smoker Counseling Performed: No Alcohol Use: None Any Illegal Drug Use: No TB Exposure/Symptoms: No Physically hurt or threatened: No Family History Family history of heart diseas: No Other Last Tetanus: UTD Any Pre-Existing Lines (PICC,: No Review of Systems Review of Systems Constitutional: Reports no symptoms EENTM: Reports no symptoms Cardiovascular: Reports no symptoms Respiratory: Reports no symptoms Gastrointestinal: Reports no symptoms Genitourinary: Reports no symptoms Musculoskeletal: Reports no symptoms Integumentary: Reports no symptoms Neurological: Reports numbness Psychological: Reports no symptoms Endocrine: Reports no symptoms Hematological/Lymphatic: Reports no symptoms Physical Exam Related Data Allergies: Coded Allergies: No Known Allergies (Unverified , 06/09/12) Triage Vital Signs Vital Signs Date Time Temp Pulse Resp B/P (MAP) Pulse Ox O2 Delivery O2 Flow Rate FiO2 02/03/20 09:10 97.4 73 18 154/79 99 Room Air Vital signs reviewed: Yes Physical Exam CONSTITUTIONAL Constitutional: Present well-developed, Present well-nourished HENT HENT: Present normocephalic, Present atraumatic, Present oropharynx clear/moist, Present nose normal HENT L/R: Present left ext ear normal, Present right ext ear normal EYES Eyes: Reports PERRL, Reports conjunctivae normal NECK Neck: Present ROM normal PULMONARY Pulmonary: Present effort normal, Present breath sounds normal CARDIOVASCULAR Cardiovascular: Present regular rhythm, Present heart sounds normal, Present capillary refill normal, Present normal rate GASTROINTESTINAL Abdominal: Present soft, Present nontender, Present bowel sounds normal GENITOURINARY Genitourinary: Present exam deferred SKIN Skin: Present warm, Present dry MUSCULOSKELETAL Musculoskeletal: Present ROM normal NEUROLOGICAL Neurological: Present alert, Present oriented x 3, Present DTRs normal, Present sensory deficit (MILD DECREASED TOUCH SENS TO BILATERAL FOREHEAD SLIGHTLY WORSE ON LEFT ); Absent cranial nerve deficit, Absent abnormal gait, Absent weakness PSYCHOLOGICAL Psychological: Present mood/affect normal, Present judgement normal Results Imaging Imaging results reviewed: Yes Impressions CT BRAIN WO HISTORY: Numbness across for head COMPARISON: MRI of the brain 07/29/2019 Technique: Noncontrast axial scans were obtained from skull base to the vertex. Coronal and sagittal reconstructions obtained from the axial data. One or more of the following dose reduction techniques were used: Automated exposure control, adjustment of the mA and/or kV according to patient size, and/or utilization of iterative reconstruction technique. DISCUSSION: Scalp/Skull: Unremarkable. Brain sulci: Mildly prominent. Ventricles: Compensatory dilatation. Extra-axial spaces: No masses or fluid collections. Carotid siphon calcifications are present. Parenchyma: Old lacunar insults are seen in the right anterior centrum semiovale, right anterior nguyen radiata, and left posterior nguyen radiata. Mild bilateral deep white matter hypodensity is likely chronic microvascular ischemic change. Otherwise, no masses, hemorrhage, or large vascular territory acute infarct. Dural sinuses: No abnormal densities. Sellar/Suprasellar region: Intact. Skull base: Intact. Incidental findings: None. IMPRESSION: 1. No acute intracranial abnormalities. No significant changes when compared to head CT dated 07/28/2019 and brain MRI dated 07/29/2019. 2. Mild supratentorial chronic microvascular ischemic change. 3. Old lacunar insults in the right centrum semiovale, right nguyen radiata, and left nguyen radiata. 4. Mild generalized cerebral volume loss. Signed by: Dr. Gordo Moore M.D. on 02/03/2020 10:01 AM Assessment & Plan Medical Decision Making MDM NUMBNESS TO FOREHEAD, WANTS CT HEAD BECAUSE HER PCP SENT HER FOR THAT - WILL GET CT R/O BLEED, MASS, STROKE Reassessment Reassessment DC HOME, F/U PCP, RTED PRN Assessment & Plan Final Impression: (1) Paresthesia Depart Disposition: HOME, SELF-CARE Last Vital Signs Date Time Temp Pulse Resp B/P (MAP) Pulse Ox O2 Delivery O2 Flow Rate FiO2 02/03/20 09:10 97.4 73 18 154/79 99 Room Air Home Meds Reported Medications Atorvastatin Calcium (ATORVASTATIN CALCIUM) 20 Mg Tablet, 20 MG PO HS, #30 TAB 07/29/19 Levothyroxine Sodium (SYNTHROID) 112 Mcg Tablet, 1 TAB PO DAILY 06/09/12 SOLOMON WARD MD Feb 03, 2020 09:26
--- NOTE | 2020-02-03 10:04 | Diagnostic Imaging Report ---
CT BRAIN WO HISTORY: Numbness across for head COMPARISON: MRI of the brain 07/29/2019 Technique: Noncontrast axial scans were obtained from skull base to the vertex. Coronal and sagittal reconstructions obtained from the axial data. One or more of the following dose reduction techniques were used: Automated exposure control, adjustment of the mA and/or kV according to patient size, and/or utilization of iterative reconstruction technique. DISCUSSION: Scalp/Skull: Unremarkable. Brain sulci: Mildly prominent. Ventricles: Compensatory dilatation. Extra-axial spaces: No masses or fluid collections. Carotid siphon calcifications are present. Parenchyma: Old lacunar insults are seen in the right anterior centrum semiovale, right anterior nguyen radiata, and left posterior nguyen radiata. Mild bilateral deep white matter hypodensity is likely chronic microvascular ischemic change. Otherwise, no masses, hemorrhage, or large vascular territory acute infarct. Dural sinuses: No abnormal densities. Sellar/Suprasellar region: Intact. Skull base: Intact. Incidental findings: None. IMPRESSION: 1. No acute intracranial abnormalities. No significant changes when compared to head CT dated 07/28/2019 and brain MRI dated 07/29/2019. 2. Mild supratentorial chronic microvascular ischemic change. 3. Old lacunar insults in the right centrum semiovale, right nguyen radiata, and left nguyen radiata. 4. Mild generalized cerebral volume loss. Signed by: Dr. Gordo Moore M.D. on 02/03/2020 10:01 AM
--- OUTSIDE RECORDS SUMMARY | 2020-02-03 10:33 | XMS REPORT | Continuity of Care Document ---
Author Author [facility] t Organization [facility] Address [address] [place] [address] Phone Unavailable Care Team Providers Care Biological Sciences Instructor Name Role Phone ABHISHEK BURK MD PCP Kostas WARD Attphys Unavailable Errol MORE Attphys Unavailable ABHISHEK BURK Attphys Unavailable Errol MORE Admphys Unavailable Payers Payer Name Policy Type Policy Number Effective Date Expiration Date S dong [facility] [id number] 2016 00:00:00 [facility] Problems Condition Name Condition Details Condition Category Status Onset Date Resolution Date Last Treatment Date Treating Clinician Comments Source Transient ischemic attack TIA (transient ischemic attack) Problem Active [facility] Allergies, Adverse Reactions, Alerts Allergy Name Allergy Type Status Severity Reaction(s) Onset Date Inacti ve Date Treating Clinician Comments Source No Known Allergies DA Active U 2018-07-29 00:00:00 [facility] No Known Allergies DA Active U 2011-08-19 00:00:00 [facility] Medications Ordered Medication Name Filled Medication Name Start Date Stop Da te Current Medication? Ordering Clinician Indication Dosage Frequency Signature (SIG) Comments Components Source Atorvastatin Calcium 20 Mg Tablet Atorvastatin Calcium 20 Mg Tablet Yes 20 Bedtime [facility] Levothyroxine Sodium (Synthroid) 112 Mcg Tablet Levoth yroxine Sodium (Synthroid) 112 Mcg Tablet Yes 1 [facility] Procedures Procedure Date / Time Performed Performing Clinician Sour e Magnetic resonance imaging of brain without contrast 2019-07 00:00:00 ZACHERY GLASER [facility] Computed tomography of brain without radiopaque contrast 202 00:00:00 MITCHELL CAMPBELL [facility] X-ray of chest, two views 2019-07-28 00:00:00 MITCHELL CAMPBELL [facility] Encounters Start Date/Time End Date/Time Encounter Type Admission Type Attendi [facility] Care Department Encounter ID Source 2019-07-28 19:08:00 2019-07-29 18:28:00 Discharged Inpatient (obs) 1 MARISABEL MORE [facility] [id number] [facility] Results Test Description Test Time Test Comments Results Result Comments Source CT BRAIN WO 2020-02-03 09:55:00 [facility] [address] [place] [address] Patient Name: PETRONA SCHULZ MR #: [id number] : 1955 Age/Sex: 64/F Req #: [id number] Adm Physician: Ordered by: SOLOMON WARD MD Report #: [id number] Location: ER Room/Bed: Procedure: [id number] CT/CT BRAIN WO Exam Date: 02/03/20 Exam Time: 919 REPORT STATUS: Signed CT BRAIN WO HISTORY: Numbness across for head COMPARISON: MRI of the brain 07/29/2019 Technique: Noncontrast axial scans were obtained from skull base to the vertex. Coronal and sagittal reconstructions obtained from the axial data. One or more of the following dose reduction techniques were used: Automated exposure control, adjustment of the mA and/or kV according to patient size, and/or utilization of iterative reconstruction technique. DISCUSSION: Scalp/Skull: Unremarkable. Brain sulci: Mildly prominent. Ventricles: Compensatory dilatation. Extra- axial spaces: No masses or fluid collections. Carotid siphon calcifications ar e present. Parenchyma: Old lacunar insults are seen in the right anterior centrum semiovale, right anterior nguyen radiata, and left posterior nguyen radiata. Mild bilateral deep white matter hypodensity is likely chronic microvascular ischemic change. Otherwise, no masses, hemorrhage, or large vascular territory acute infarct. Dural sinuses: No abnormal densities. Sellar/Suprasellar region: Intact. Skull base: Intact. Incidental findings: None. IMPRESSION: 1. No acute intracranial abnormalities. No significant changes when compared to head CT dated 07/28/2019 and brain MRI dated 07/29/2019. 2. Mild supratentorial chronic microvascular ischemic change. 3. Old lacunar insults in the right centrum semiovale, right nguyen radiata, and left ngyuen radiata. 4. Mild generalized cerebral volume loss. Signed by: Dr. Gordo Moore M.D. on 02/03/2020 10:01 AM Dictated By: GORDO MOORE MD 1001 Transcribed By: LIVIER on 02/03/20 1001 COPY TO: SOLOMON WARD MD Creatine Kinase MB 2019-07-29 14:15:00 Test Item Creatine Kinase MB (test code = 58362-8) 0.80 0-5.0 [facility] CenterTroponin [id number] 14:15:00* Test Item Value Reference Range Interpretation Comments Troponin I (test code = 60111-3) < 0.001 0-0.300 [facility] CenterCreatine Vejtcz9898-68-41 14:08:00* Test Item Value Reference Range Interpretation Comments Creatine Kinase (test code = 2157-6) 34 29-168 [facility] CenterFree Thyroxine Zbles9395-67-64 07:50:00* Test Item Value Reference Range Interpretation Comments Free Thyroxine Index (test code = 48137-8) 2.2862 1.4-3.8 [facility] CenterThyroxine (T4)2019-07-29 07:50:00* Test Item Value Reference Range Interpretation Comments Thyroxine (T4) (test code = 3026-2) 6.76 4.5-10.9 Our current method for Total T4 is not recommended for use as the only marker fo r evaluating patients for thyroid disorders.[facility] CenterTriiodothyronine (T3) Vylxcg0867-57-88 07:50:00* Test Item Value Reference Range Interpretation Comments Triiodothyronine (T3) Uptake (test code = 3050-2) 33.82 22.5 -37.0 [facility] CenterThyroid Stimulating Hormone (TSH) 2019-07-29 07:50:00* Test Item Value Reference Range Interpretation Comments Thyroid Stimulating Hormone (TSH) (test code = 42958-0) 3.483 0.350-4.940 [facility] CenterTriglycerides Reaav2761-06-10 07:32:00* Test Item Value Reference Range Interpretation Comments Triglycerides Level (test code = 2571-8) 115 0-149 [facility] CenterCholesterol Uhdxd6527-50-77 07:32:00* Test Item Value Reference Range Interpretation Comments Cholesterol Level (test code = 2093-3) 194 0-199 Less than 200 mg/dL Low Mqzj131 - 239 mg/dL Borderline Mrpo748 m g/dl and greater High Risk [facility] CenterLDL Uxldxzszqcq2728-05-64 07:32:00* Test Item Value Reference Range Interpretation Comments LDL Cholesterol (test code = 2089-1) 109 60-130 [facility] CenterHDL Djmuyfmtoxm1640-92-53 07:32:00* Test Item Value Reference Range Interpretation Comments HDL Cholesterol (test code = 2085-9) 62 40-60 H [facility] CenterCholesterol/HDL Subgs3902-80-69 07:32:00 * Test Item Value Reference Range Interpretation Comments Cholesterol/HDL Ratio (test code = 9830-1) 3.1 3.0-3.6 [facility] CenterMRI BRAIN [id number] 21:52:00 [facility] [address] [address] Patient Name: PETRONA SCHULZ MR #: [id number] : 1955 Age/Sex: 63/F [facility] #: [id number] Req #: [id number] Adm Physician: MARISABEL MORE MD Ordered by: ZACHERY GLASER NP Report #: [id number] Location: MED/SURG2 Room/Bed: [facility] Procedure: [id number] MRI/MRI BRAIN WO Exam Date: Exam Time: REPORT STATUS: Signed History: Transient ischemic attack, loss of speech. Comparison studies: CT head from 07/28/2019 and 02/08/2017. Technique: Sagittal T2; axial DWI, FLAIR, GRE, FLAIR, T2, T1, Coronal FLAIR. Intravenous contrast: None Findings: Scalp: N ormal in signal. No masses . Bone marrow: Normal in signal intensity. Bra in sulci: Prominent. Ventricles: Mild compensated dilatation due to volume los s . No hydrocephalus . Parenchyma: T2/FLAIR patchy and confluent hyperint ensity in right middle frontal gyrus subcortical white matter, frontal nguyen radiata/centrum semiovale and left periatrial white matter represents chronic encephalomalacia related to prior vascular insult or demyelinating disease. Nonspecific few, scattered supratentorial white matter T2/FLAIR hyperintense f oci are likely related to small vessel ischemic changes. No masses, hemorrhage , acute or chronic vascular insults. Suprasellar region: No abnormalities. Craniocervical junction: Patent foramen magnum. No Chiari malformation . Ve ssels: Normal flow-voids in the arteries and sinuses. Incidental finding: Small amount of T2 hyperintense fluid in right mastoid air cells. IMPRESSI ON: 1. No acute intracranial abnormality. 2. Mild supratentorial whi te matter microvascular ischemic changes. 3. Chronic encephalomalacia in r ight middle frontal gyrus, frontal nguyen radiata, centrum semiovale and left periatrial white matter possibly representing a sequel of prior vascular insul t vs demyelinating disease. 4. Mild generalized cerebral volume loss. Signed by: Dr. Theodora Alexandra M.D. on 07/28/2019 10:10 PM Dictated By: Errol ALEXANDRA MD 09 Transcribed By: LIVIER on 07/28/192209 COPY TO: ZACHERY GLASER NP Sodium Lnewi7146-71-37 18:47:00* Test Item Value Reference Range Interpretation Comments Sodium Level (test code = 2951-2) 141 136-145 [facility] CenterPotassium Zbdxr0100-69-44 18:47:00* Test Item Value Reference Range Interpretation Comments Potassium Level (test code = 2823-3) 4.3 3.5-5.1 [facility] CenterChloride Zwkfu1837-89-95 18:47:00* Test Item Value Reference Range Interpretation Comments Chloride Level (test code = 2075-0) 108 98-107 H [facility] CenterCarbon Dioxide Hswjp6664-09-50 18:47:00* Test Item Value Reference Range Interpretation Comments Carbon Dioxide Level (test code = 2028-9) 24 22-29 [facility] CenterAnion Hyh4630-87-91 18:47:00* Test Item Value Reference Range Interpretation Comments Anion Gap (test code = 46408-0) 13.3 8-16 [facility] CenterBlood Urea Intrrxdg4200-74-37 18:47:00* Test Item Value Reference Range Interpretation Comments Blood Urea Nitrogen (test code = 3094-0) 14 7-26 [facility] CenterCreatinine2020-04-06 18:47:00* Test Item Value Reference Range Interpretation Comments Creatinine (test code = 2160-0) 0.99 0.57-1.11 [facility] CenterBUN/Creatinine Ijzpi5964-19-76 18:47:00* Test Item Value Reference Range Interpretation Comments BUN/Creatinine Ratio (test code = 3097-3) 14 6-25 [facility] CenterEstimat Glomerular Filtration Rate 2019-07-28 18:47:00* Test Item Value Reference Range Interpretation Comments Estimat Glomerular Filtration Rate (test code = 504824224) 56 >60 L Ranges were taken from the National Kidney Disease Education Program and the [facility] literature.Reference ranges:60 or greater: Mqxouc84-90 ( for 3 consecutive months): Chronic kidney disease 15 or less: Kidney failurePalestine Regional Medical CenterGlucose Dmfai7477-82-33 18:47:00* Test Item Value Reference Range Interpretation Comments Glucose Level (test code = REB4194) 113 74-118 [facility] CenterCalcium Tyeqb4936-03-49 18:47:00* Test Item Value Reference Range Interpretation Comments Calcium Level (test code = 02379-9) 9.5 8.4-10.2 [facility] CenterTotal Edapjywmh7476-18-68 18:47:00* Test Item Value Reference Range Interpretation Comments Total Bilirubin (test code = 1975-2) 0.2 0.2-1.2 [facility] CenterAspartate Amino Transf (AST/SGOT) 2019-07-28 18:47:00* Test Item Value Reference Range Interpretation Comments Aspartate Amino Transf (AST/SGOT) (test code = Aspartate Amino Transf (AST/SGOT)) 17 5-34 [facility] CenterAlanine Aminotransferase (ALT/SGPT) 2019-07-28 18:47:00* Test Item Value Reference Range Interpretation Comments Alanine Aminotransferase (ALT/SGPT) (test code = 1742-6) 22 0-55 [facility] CenterTotal Kqnbnek3094-26-97 18:47:00* Test Item Value Reference Range Interpretation Comments Total Protein (test code = 2885-2) 6.6 6.5-8.1 [facility] CenterAlbumin2020-04-06 18:47:00* Test Item Value Reference Range Interpretation Comments Albumin (test code = 1751-7) 3.7 3.5-5.0 [facility] CenterGlobulin2020-04-06 18:47:00* Test Item Value Reference Range Interpretation Comments Globulin (test code = 30853-3) 2.9 2.3-3.5 [facility] CenterAlbumin/Globulin Awynb1118-51-94 18:47:00 * Test Item Value Reference Range Interpretation Comments Albumin/Globulin Ratio (test code = 1759-0) 1.3 0.8-2.0 [facility] CenterAlkaline Vluqbvgamim4498-52-18 18:47:00* Test Item Value Reference Range Interpretation Comments Alkaline Phosphatase (test code = 6768-6) 65 40-150 [facility] CenterProthrombin Gike8446-76-09 18:37:00* Test Item Value Reference Range Interpretation Comments Prothrombin Time (test code = 5902-2) 11.7 11.9-14.5 L [facility] CenterProthromb Time International Ratio 2019-07-28 18:37:00* Test Item Value Reference Range Interpretation Comments Prothromb Time International Ratio (test code = 6301-6) 0.81 Oral Anticoagulant Therapy INR Values:1. Low Intensity Therapy 1.5 - 2.02 . Moderate Intensity Therapy 2.0 - 3.03. High Intensity Therapy(1) 2.5 - 3. 54. High Intensity Therapy(2) 3.0 - 4.05. Panic Value INR > 5.0 [facility] Medical CenterActivated Partial Thromboplast Time 2019-07-28 18:37:00* Test Item Value Reference Range Interpretation Comments Activated Partial Thromboplast Time (test code = 56090-7) 25.6 23.8-35.5 [facility] CenterCHEST 2 TKGXU4084-10-30 18:25:00 [facility] [address] [address] Patient Name: PETRONA SCHULZ MR #: [id number] : 1955 Age/Sex: 63/F Req #: [id number] Adm Physician: Ordered by: MITCHELL CAMPBELL DO Report #: [id number] Location: ER Room/Bed: Procedure: 0406-003 2 DX/CHEST 2 VIEWS Exam Date: 07/28/19 Exam Time: 18 00 REPORT STATUS: Signed EXAMINA TION: CHEST 2 VIEWS INDICATION: WEAK [id number] COMPARISON: Chest radiograph 06/09/2012 FINDINGS: PA and lateral views TUBES and LINES: None. LUNGS: Lungs are well inflated. Lungs are clear. There is no evidence of pneumonia or pulmonary edema. PLEUR A: No pleural effusion or pneumothorax. HEART AND MEDIASTINUM: The cardio mediastinal silhouette is unremarkable. BONES AND SOFT TISSUES: No acute o sseous lesion. Soft tissues are unremarkable. UPPER ABDOMEN: No free air under the diaphragm. IMPRESSION: No acute thoracic abnormality. Signed by: Dr. Kate Lombardi M.D. on 07/28/2019 6:33 PM Dictated By: KATE LOMBARDI MD 32 Transcribed By: LIVIER on 07/28/191832 COPY TO : MITCHELL CAMPBELL DO White Blood Qazyu1632-75-28 18:20:00* Test Item Value Reference Range Interpretation Comments White Blood Count (test code = 6690-2) 7.33 4.8-10.8 [facility] CenterRed Blood Fkium1534-87-93 18:20:00* Test Item Value Reference Range Interpretation Comments Red Blood Count (test code = 789-8) 4.55 3.6-5.1 [facility] CenterHemoglobin2020-04-06 18:20:00* Test Item Value Reference Range Interpretation Comments Hemoglobin (test code = 88027-1) 14.5 12.0-16.0 [facility] CenterHematocrit2020-04-06 18:20:00* Test Item Value Reference Range Interpretation Comments Hematocrit (test code = 4544-3) 42.3 34.2-44.1 [facility] CenterMean Corpuscular Dkeore8221-29-82 18:20:00* Test Item Value Reference Range Interpretation Comments Mean Corpuscular Volume (test code = 787-2) 93.0 81-99 [facility] CenterMean Corpuscular Uwqkzjtnbh6050-36-16 18:20:00* Test Item Value Reference Range Interpretation Comments Mean Corpuscular Hemoglobin (test code = 785-6) 31.9 28-32 [facility] CenterMean Corpuscular Hemoglobin Concent 2019-07-28 18:20:00* Test Item Value Reference Range Interpretation Comments Mean Corpuscular Hemoglobin Concent (test code = 786-4) 34.3 31-35 [facility] CenterRed Cell Distribution Ksdid2743-63-63 18:20:00* Test Item Value Reference Range Interpretation Comments Red Cell Distribution Width (test code = 64142-9) 13.5 11.7 -14.4 [facility] CenterPlatelet Weqhz2494-08-39 18:20:00* Test Item Value Reference Range Interpretation Comments Platelet Count (test code = 777-3) 348 140-360 [facility] CenterNeutrophils (%) (Auto)2019-07-28 18:20:00 * Test Item Value Reference Range Interpretation Comments Neutrophils (%) (Auto) (test code = 26114-7) 72.1 38.7-80.0 [facility] CenterLymphocytes (%) (Auto)2019-07-28 18:20:00 * Test Item Value Reference Range Interpretation Comments Lymphocytes (%) (Auto) (test code = 736-9) 19.2 18.0-39.1 [facility] CenterMonocytes (%) (Auto)2019-07-28 18:20:00* Test Item Value Reference Range Interpretation Comments Monocytes (%) (Auto) (test code = 5905-5) 6.8 4.4-11.3 [facility] CenterEosinophils (%) (Auto)2019-07-28 18:20:00 * Test Item Value Reference Range Interpretation Comments Eosinophils (%) (Auto) (test code = 713-8) 1.1 0.0-6.0 [facility] CenterBasophils (%) (Auto)2019-07-28 18:20:00* Test Item Value Reference Range Interpretation Comments Basophils (%) (Auto) (test code = 706-2) 0.5 0.0-1.0 [facility] CenterIM GRANULOCYTES %2019-07-28 18:20:00* Test Item Value Reference Range Interpretation Comments IM GRANULOCYTES % (test code = IM GRANULOCYTES %) 0.3 0.0- 1.0 [facility] CenterNeutrophils # (Auto)2019-07-28 18:20:00* Test Item Value Reference Range Interpretation Comments Neutrophils # (Auto) (test code = 751-8) 5.3 2.1-6.9 [facility] CenterLymphocytes # (Auto)2019-07-28 18:20:00* Test Item Value Reference Range Interpretation Comments Lymphocytes # (Auto) (test code = 91993-7) 1.4 1.0-3.2 [facility] CenterMonocytes # (Auto)2019-07-28 18:20:00* Test Item Value Reference Range Interpretation Comments Monocytes # (Auto) (test code = 742-7) 0.5 0.2-0.8 [facility] CenterEosinophils # (Auto)2019-07-28 18:20:00* Test Item Value Reference Range Interpretation Comments Eosinophils # (Auto) (test code = 711-2) 0.1 0.0-0.4 [facility] CenterBasophils # (Auto)2019-07-28 18:20:00* Test Item Value Reference Range Interpretation Comments Basophils # (Auto) (test code = 704-7) 0.0 0.0-0.1 [facility] CenterAbsolute Immature Granulocyte (auto 2019-07-28 18:20:00* Test Item Value Reference Range Interpretation Comments Absolute Immature Granulocyte (auto (riccardo t code = Absolute Immature Granulocyte (auto) 0.02 0-0.1 [facility] CenterCT BRAIN [id number] 18:06:00 [facility] [address] [address] Patient Name: PETRONA SCHULZ MR #: [id number] : 1955 Age/Sex: 63/F Req #: [id number] Adm Physician: Ordered by: MITCHELL CAMPBELL DO Report #: [id number] Location: ER Room/Bed: Procedure: 0406-[address]/CT BRAIN WO Exam Date: 07/28/19 Exam Time: 1753 REPORT STATUS: Signed CT BRAIN WO HISTORY: Trouble with speech COMPARISON: Head CT report dated 01/21 (images not available at time of dictation) Technique: Noncontr ast axial scans were obtained from skull base to the vertex. Coronal and sagi ttal reconstructions obtained from the axial data. One or more of the followi ng dose reduction techniques were used: Automated exposure control, adjustment of the mA and/or kV according to patient size, and/or utilization of iterative reconstruction technique. DISCUSSION: Scalp/Skull: Unremarkable. B rain sulci: Mildly prominent. Ventricles: Compensatory dilatation. Extra-axi al spaces: No masses or fluid collections. Carotid siphon calcifications are p resent. Parenchyma: Focal hypodensities in the right anterior centrum se miovale, right anterior nguyen radiata, and left nguyen radiata may be due to age indeterminate ischemia; there is no significant mass effect or associated acute hemorrhage. Hypodensities were seen in these regions per prior report; h owever, any changes cannot be evaluated since prior images are not available f or review. Mild bilateral deep white matter hypodensity is likely chronic m icrovascular ischemic change. Otherwise, no masses, hemorrhage, or large va scular territory acute infarct. Dural sinuses: No abnormal densities. Se llar/Suprasellar region: Intact. Skull base: Intact. Incidental findings: No ne. IMPRESSION: 1. Focal hypodensities in the right anterior centrum yuniel iovale, right anterior nguyen radiata, and left nguyen radiata may be due to a ge indeterminate ischemia or demyelination. Hypodensities were seen in these r egions per prior report; however, any changes cannot be evaluated since prior images are not available for review. 2. No other acute intracranial abnorma lities. 3. Mild supratentorial chronic microvascular ischemic change. Mild ge neralized cerebral volume loss. Signed by: Dr. Gordo Moore M.D. on 07/28/2019 6:16 PM Dictated By: GORDO MOORE MD 1816 Transcribed By: LIVIER on 07/28/19 1 816 COPY TO: MITCHELL CAMPBELL, LIPID PROFILE (CORONARY RISK) 2018-07-30 19:44:00* Test Item Value Reference Range Interpretation Comments TRIGLYCERIDES (test code = TRIG) 148 mg/dL 20-150 N CHOLESTEROL (test code = CHOL) 218 mg/dL 0-200 H CHOLESTEROL/HDL RATIO (test code = CHOLHDL) 4.0 RATIO 0-4.9 N RISK ASSOCIATED WITH CHOL/HDL RATIOS: Risk Male Female1/2 AVERAGE 3.43 3.27AVERAGE 4.97 4.442X AVERAGE 9.55 7.053X AVERAGE 23.39 11.04 REFERENCE VALUE IS RELATED TO RISK LEVELS ASRECOMMENDED BY THE [facility]. HEART, LUNG, AND BLOOD INST. HDL CHOLESTEROL (test code = HDL) 53 mg/dL 40-60 N LIPOPROTEIN LDL (test code = LDL) 133 mg/dL 100-129 H RN PERSONNEL, CONTACT PHYSICIAN IMMEDIATELY IF THIS IS A STROKE, AMI OR CAROTID STENOSIS PATIENT WHEN THE LDL >100 (1ST OCCURENCE, THIS ADMISSION) Reference Interval: mg/dL mmol/L Optimal <100 <2.6Near/above optimal 100-129 2.6- 3.3Borderline High 130-159 3.4-4.1High 160-189 4.1-4.9Very High >=190 >=4.9========= This LDL result is a direct measurement.========= - MRI C-SPINE W/O [id number] 10:30:00 FAX: Marisabel Childers MD [phone] [place]: [facility]: [facility] FAX: Abhishek Harmon MD [phone] Name: PETRONA SCHULZ [facility] : 1955 Age/S: 62/F [address] [facility] Unit #: [id number] Loc: [address] [place] [address] Phys: Marisabel More MD Acct: [id number] Dis Date: Status: ADM IN PHONE #: [phone] Exam Date: 07/30/2018 0900 FAX #: [phone] Reason: neck pain EXAMS: CPT CODE: [id number] MRI C-SPINE W/O CONT 77552 HISTORY: Neck pain. COMPARISON: None available. MRI [...] and signed by: Raul Osman M.D. CC: Marisabel More; Leisa Burk MD Technologist: ROSA M WALLSRT [facility] Date[facility]Time/By: 07/30/2018 (1030) : By: [email or web address] Orig Print D/T: S: 07/30/2018 (1233) PAGE 1 Signed Report - MRI BRAIN W/O CONTRAST 2018-07-30 09:25:00 FAX: Juan Ramon Benavides MD [phone] [place]: St: ADM FAX: Marisabel Childers MD [phone] FAX: Abhishek Harmon MD [phone] Name: PETRONA SCHULZ [facility] : 1955 Age/S: 62/F [address] [facility] Unit #: [id number] Loc: [address] [place] [address] Phys: Juan Ramon Pearson MD Acct: [id number] Dis Date: Status: ADM IN ONE #: [phone] Exam Date: 07/30/2018 0845 FAX #: [phone] Reason: Syncope/?CVA EXAMS: CPT CODE: [id number] MR I BRAIN W/O CONTRAST 84686 HISTORY: Synco pe and CVA. COMPARISON: Head [...] subcortical deep white. Electronically Sign ed by aFrzad Osman on 07/30/2018 at 0925 Reported a nd signed by: Raul Osman M.D. CC: Juan Ramon Pearson MD; Marisabel More Deepak MD Technologist: ROSA M WALLSRT - MRI [facility] Date/Time/By: 07/30/2018 (924) : By: [email or web address] Orig Print D/T: S: 07/30/2018 (28) PAGE 1 Signed Report [id number] 18:37:00* Test Item Value Reference Range Interpretation Comments TROPONIN-I (test code = TROPI) 0.106 ng/mL 0-0.045 HH COMMENTS TO RECONNAISSANCE MAN: COLLECT 3 HOURS AFTER PREVIOUS VXLXGOGTJBFMKE-O9189-25-08 14:02:00* Test Item Value Reference Range Interpretation Comments TROPONIN-I (test code = TROPI) 0.126 ng/mL 0-0.045 HH Results called to [id number]\[employer].KN 07/29/18 1402Critical results verified and read back by Nurse? Y COMMENTS TO RECONNAISSANCE MAN: COLLECT 3 HOURS AFTER PREVIOUS [id number] 14:02:00* Test Item Value Reference Range Interpretation Comments TROPONIN-I (test code = TROPI) 0.126 ng/mL 0-0.045 HH Results called to [email or web address] 07/29/18 1402Critical results verified and read back by Nurse? Y COMMENTS TO RECONNAISSANCE MAN: COLLECT 3 HOURS AFTER PREVIOUS SAMPLEURINALYSIS [id number] 12:13:00* Test Item Value Reference Range Interpretation Comments UA COLOR (test code = COLU) LIGHT YELLOW YELLOW UA APPEARANCE (test code = APPU) CLEAR CLEAR UA GLUCOSE DIPSTICK (test code = DGLUU) NEGATIVE mg/dL NEGATIVE UA BILIRUBIN DIPSTICK (test code = BILU) NEGATIVE mg/dL NEGATIVE UA KETONE DIPSTICK (test code = KETU) NEGATIVE mg/dL NEGATIVE UA SPECIFIC GRAVITY (test code = SGU) 1.011 1.001-1.035 UA BLOOD DIPSTICK (test code = CARLOS) 1+ (Small) mg/dL NEGATIVE A UA PH DIPSTICK (test code = NAHID) 6.0 5.0-8.0 UA PROTEIN DIPSTICK (test code = PROU) NEGATIVE mg/dL NEGATIVE UA UROBILINIOGEN DIPSTICK (test code = URO) NEGATIVE mg/dL NEGATIVE UA NITRITE DIPSTICK (test code = SHEYLA) NEGATIVE NEGATIVE UA LEUKOCYTE ESTERASE W REFLEX (test code = LEUUR) NEGATIVE Mar/uL NEGATIVE UA WBC (test code = WBCU) 0-5 per HPF 0-5 UA RBC (test code = RBCU) 0-2 #/HPF 0-5 UA EPITHELIAL CELLS (test code = EPIU) FEW per HPF FEW UA BACTERIA (test code = BACU) MANY #/HPF NONE A UA HYALINE CAST (test code = HYALU) 6-10 #/LPF 0-5 A UA MUCUS (test code = MUCU) FEW #/LPF FEW Urine Source? Clean CatchDRUGS OF ABUSE SCREEN [id number] 12:13:00* Test Item Value Reference Range Interpretation Comments URN COCAINE (test code = COCAURN) NEGATIVE <300 ng/mL URN CANNABINOIDS (test code = CANNABURN) NEGATIVE <50 ng/mL URN AMPHETAMINE (test code = AMPHETURN) NEGATIVE <1000 ng/mL URN BARBITURATE (test code = BARBITURN) NEGATIVE <200 ng/mL URN BENZODIAZEPINE (test code = BENZOURN) NEGATIVE <200 ng/mL URN OPIATES (test code = OPIATURN) POSITIVE <300 ng/mL A This test provides only a preliminary test [...] employment testing, legaltesting). URN PHENCYCLIDINE (PCP) (test code = PHENCURN) NEGATIVE <25 ng/ mL URN METHADONE (test code = METHAURN) NEGATIVE <300 ng/mL Urine Source? Clean CatchURINALYSIS [id number] 11:41:00* Test Item Value Reference Range Interpretation Comments UA COLOR (test code = COLU) LIGHT YELLOW YELLOW UA APPEARANCE (test code = APPU) CLEAR CLEAR UA GLUCOSE DIPSTICK (test code = DGLUU) NEGATIVE mg/dL NEGATIVE UA BILIRUBIN DIPSTICK (test code = BILU) NEGATIVE mg/dL NEGATIVE UA KETONE DIPSTICK (test code = KETU) NEGATIVE mg/dL NEGATIVE UA SPECIFIC GRAVITY (test code = SGU) 1.011 1.001-1.035 UA BLOOD DIPSTICK (test code = CARLOS) 1+ (Small) mg/dL NEGATIVE A UA PH DIPSTICK (test code = NAHID) 6.0 5.0-8.0 UA PROTEIN DIPSTICK (test code = PROU) NEGATIVE mg/dL NEGATIVE UA UROBILINIOGEN DIPSTICK (test code = URO) NEGATIVE mg/dL NEGATIVE UA NITRITE DIPSTICK (test code = SHEYLA) NEGATIVE NEGATIVE UA LEUKOCYTE ESTERASE W REFLEX (test code = LEUUR) NEGATIVE Mar/uL NEGATIVE UA WBC (test code = WBCU) 0-5 per HPF 0-5 UA RBC (test code = RBCU) 0-2 #/HPF 0-5 UA EPITHELIAL CELLS (test code = EPIU) FEW per HPF FEW UA BACTERIA (test code = BACU) MANY #/HPF NONE A UA HYALINE CAST (test code = HYALU) 6-10 #/LPF 0-5 A UA MUCUS (test code = MUCU) FEW #/LPF FEW Urine Source? Clean CatchDRUGS OF ABUSE SCREEN [id number] 11:41:00* Test Item Value Reference Range Interpretation Comments URN COCAINE (test code = COCAURN) <300 ng/mL URN CANNABINOIDS (test code = CANNABURN) <50 ng/mL URN AMPHETAMINE (test code = AMPHETURN) <1000 ng/mL URN BARBITURATE (test code = BARBITURN) <200 ng/mL URN BENZODIAZEPINE (test code = BENZOURN) <200 ng/mL URN OPIATES (test code = OPIATURN) <300 ng/mL URN PHENCYCLIDINE (PCP) (test code = PHENCURN) <25 ng/ mL URN METHADONE (test code = METHAURN) <300 ng/mL Urine Source? Clean CatchURINALYSIS [id number] 11:39:00* Test Item Value Reference Range Interpretation Comments UA COLOR (test code = COLU) LIGHT YELLOW YELLOW UA APPEARANCE (test code = APPU) CLEAR CLEAR UA GLUCOSE DIPSTICK (test code = DGLUU) NEGATIVE mg/dL NEGATIVE UA BILIRUBIN DIPSTICK (test code = BILU) NEGATIVE mg/dL NEGATIVE UA KETONE DIPSTICK (test code = KETU) NEGATIVE mg/dL NEGATIVE UA SPECIFIC GRAVITY (test code = SGU) 1.011 1.001-1.035 UA BLOOD DIPSTICK (test code = CARLOS) 1+ (Small) mg/dL NEGATIVE A UA PH DIPSTICK (test code = NAHID) 6.0 5.0-8.0 UA PROTEIN DIPSTICK (test code = PROU) NEGATIVE mg/dL NEGATIVE UA UROBILINIOGEN DIPSTICK (test code = URO) NEGATIVE mg/dL NEGATIVE UA NITRITE DIPSTICK (test code = SHEYLA) NEGATIVE NEGATIVE UA LEUKOCYTE ESTERASE W REFLEX (test code = LEUUR) NEGATIVE Mar/uL NEGATIVE UA WBC (test code = WBCU) per HPF 0-5 Urine Source? Clean CatchDRUGS OF ABUSE SCREEN [id number] 11:39:00* Test Item Value Reference Range Interpretation Comments URN COCAINE (test code = COCAURN) <300 ng/mL URN CANNABINOIDS (test code = CANNABURN) <50 ng/mL URN AMPHETAMINE (test code = AMPHETURN) <1000 ng/mL URN BARBITURATE (test code = BARBITURN) <200 ng/mL URN BENZODIAZEPINE (test code = BENZOURN) <200 ng/mL URN OPIATES (test code = OPIATURN) <300 ng/mL URN PHENCYCLIDINE (PCP) (test code = PHENCURN) <25 ng/ mL URN METHADONE (test code = METHAURN) <300 ng/mL Urine Source? Clean CatchB-TYPE NATRIURETIC [id number] 09:56:00* Test Item Value Reference Range Interpretation Comments B-TYPE NATRIURETIC PEPTIDE (test code = BNP) 7.73 pgram/mL 0-100 N BASIC METABOLIC [id number] 09:04:00* Test Item Value Reference Range Interpretation Comments SODIUM (test code = NA) 142 mmol/L 136-145 N POTASSIUM (test code = K) 3.5 mmol/L 3.5-5.1 N CHLORIDE (test code = CL) 110.0 mmol/L 98-107 H CARBON DIOXIDE (test code = CO2) 22.0 mmol/L 21-32 N ANION GAP (test code = GAP) 13.5 10-20 N GLUCOSE (test code = GLU) 159 mg/dL 74-106 H BLOOD UREA NITROGEN (test code = BUN) 15 mg/dL 7-18 N GLOMERULAR FILTRATION RATE (test code = GFR) 56 mL/min >=60 Estimated GFR by using Modified MDRD formula.Chronic kidney disease is defined as either kidney damageor GFR <60 mL/min/1.73 m2 for >3 months. CREATININE (test code = CREAT) 1.00 mg/dL 0.55-1.02 N Note change in reference range due to change in reagent. BUN/CREATININE RATIO (test code = BUN/CREA) 15.0 10-20 N CALCIUM (test code = CA) 8.9 mg/dL 8.5-10.1 N HEPATIC FUNCTION [id number] 09:04:00* Test Item Value Reference Range Interpretation Comments TOTAL PROTEIN (test code = PROT) 7.3 gram/dL 6.4-8.2 N ALBUMIN (test code = ALB) 3.9 g/dL 3.4-5.0 N GLOBULIN (test code = GLOB) 3.4 gram/dL 2.7-4.2 N ALBUMIN/GLOBULIN RATIO (test code = A/G) 1.2 0.75-1.50 N BILIRUBIN TOTAL (test code = BILT) 0.40 mg/dL 0.0-1.0 N BILIRUBIN DIRECT (test code = BILD) 0.08 mg/dL 0.0-0.20 N SGOT/AST (test code = AST) 12 IUnit/L 15-37 L SGPT/ALT (test code = ALT) 17 IUnit/L 12-78 N ALKALINE PHOSPHATASE TOTAL (test code = ALKP) 79 IUnit/L 45-117 N Note change in reference range due to change in reagent. [id number] 09:04:00* Test Item Value Reference Range Interpretation Comments LIPASE (test code = LIP) 120 U/L 73.0-393.0 N [id number] 09:04:00* Test Item Value Reference Range Interpretation Comments MAGNESIUM (test code = MAG) 2.4 mg/dL 1.8-2.4 N THYROID PROFILE [id number] 09:04:00* Test Item Value Reference Range Interpretation Comments T3 UPTAKE (test code = T3UP) 34.0 % 30.0-40.0 N T4 (THYROXINE) (test code = T4) 11.6 ug/dL 4.5-13.9 N T7 (FREE THYROXINE INDEX) (test code = T7) 3.94 FTI 1.3-5.1 N THYROID STIMULATING HORMONE (test code = TSH) 33.000 uIU/mL 0.36-3. 74 H TSH REFERENCE RANGES: EUTHYROID: 0.35 - 4.3 mIU/mL HYPO : > 5.5 mIU/mL HYPER : < 0.35 mIU/mL [id number] 09:04:00* Test Item Value Reference Range Interpretation Comments TROPONIN-I (test code = TROPI) <0.015 ng/mL 0-0.045 N - CT HEAD/BRAIN W/O [id number] 08:53:00 Name: PETRONA SCHULZ [facility] : 1955 Age/S: 62 / F [address] Unit #: [id number] Loc: [place] [address] Phys: Jorge Luis Cat MD Acct: [id number] Dis Date: Status: REG ER PHONE #: [phone] Exam Date: 07/29/2018 0846 FAX #: [phone] Reason: syncope, fall, possible new onset seizure EXAMS: CPT CODE: [id number] CT HEAD/BRAIN W/O CONT [id number] HISTORY: Syncope and fall. COMPARISON: None available. [...] [place] RT(R)(CT) CTDI: DLP: Trnscb Date/Time: 07/29/2018 (852) Deb.TH4 Orig Print D/T: S: 07/29/2018 (0856) CTDI: DLP: PAGE 1 Signed Report - XR CHEST 1 [id number] 08:40:00 FAX: Jorge Luis Cat [place]: B St: REG Name: PETRONA PHOENIX [facility] : [birth year] Age/S: 62/F [address] [facility] Unit #: [id number] Loc: [place] [address] Phys: Jorge Luis Cat MD Acct: [id number] Dis Date: Status: REG ER PHONE #: [phone] Exam Date: 07/29/2018829 FAX #: [phone] Reason: CHEST PAIN EXAMS: CPT CODE: [id number] XR CHEST 1 V 86646 HISTORY: Chest pain. COMPARISON: None available. No acute infiltrates, effusion or con gestion is noted. The cardiac and mediastinal silhouette are withi n normal limits. IMPRESSION: No acute infilt rates, effusion or congestion. at 0840 Reported and signed by: Argentina Osman M.D. CC: Jorge Luis Cat MD Technologist: Sussy Velázquez(R); STUDENT TECHNOLOGIST Trnscrd Date/Time/By: 07/29/2018 (0840) : By: [email or web address] Orig Print D/T: S: 07/29/2018 (2241) PAGE 1 Signed Report CBC W/O [id number] 08:24:00 * Test Item Value Reference Range Interpretation Comments WHITE BLOOD CELL (test code = WBC) 12.5 K/mm3 4.5-12.5 N RED BLOOD CELL (test code = RBC) 4.58 mill/mm3 3.7-5.2 N HEMOGLOBIN (test code = HGB) 14.4 gram/dL 11.5-15.5 N HEMATOCRIT (test code = HCT) 45.2 % 36.0-46.0 N MEAN CELL VOLUME (test code = MCV) 98.7 fL 80-98 H MEAN CELL HGB (test code = MCH) 31.4 picogram 27.0-33.0 N MEAN CELL HGB CONCETRATION (test code = MCHC) 31.9 gram/dL 33.0-36. 0 L RED CELL DISTRIBUTION WIDTH (test code = RDW) 13.3 % 11.6-16. 2 N PLATELET COUNT (test code = PLT) 359 K/mm3 150-450 N MEAN PLATELET VOLUME (test code = MPV) 9.1 fL 6.7-11.[address] BRAIN WO [place] [address] Patient Name: PETRONA SCHULZ MR #: [id number] : 1955 Age/Sex: 61/F Req #: [id number] Adm Physician: Ordered by: ABHISHEK BURK MD Report #: [id number] Location: CT Room/Bed: Procedure: [id number] CT/CT BRAIN WO Exam Date : 02/08/17 [...]
== END 2020-02-03 11:07 | disposition home or self-care (01) ==
LOC: ER 09:30
DX: R20.2 Paresthesia of skin (principal); E03.9 Hypothyroidism, unspecified; Z86.73 Personal history of transient ischemic attack (TIA), and cerebral infarction without residual deficits
CPT/HCPCS: 70450; 99283

== ENCOUNTER 2020-06-30 18:04 | Emergency (ER) | payer SELFPAY ==
[~2020-06-30] VITALS: Ht 157.5 cm; Wt 70.3 kg
[2020-06-30 18:48] LABS: BASOPHILS # (AUTO) 0.1 (0.0-0.1); EOSINOPHILS # (AUTO) 0.2 (0.0-0.4); EOSINOPHILS % 2.8 % (0.0-6.0); HEMATOCRIT 35.2 % (34.2-44.1); HEMOGLOBIN 11.2 g/dL (12.0-16.0); LYMPHOCYTES # (AUTO) 1.7 (1.0-3.2); LYMPHOCYTES % 28.5 % (18.0-39.1); MEAN CORPUSCULAR HEMOGLOBIN 31.1 pg (28-32); MEAN CORPUSCULAR HGB CONC 31.8 g/dL (31-35); MEAN CORPUSCULAR VOLUME 97.8 fL (81-99); MONOCYTES # (AUTO) 0.5 (0.2-0.8); MONOCYTES % 7.5 % (4.4-11.3); NEUTROPHILS # (AUTO) 3.6 (2.1-6.9); NEUTROPHILS % 59.7 % (38.7-80.0); PLATELET COUNT 337 x10e3/uL (140-360); RED CELL DISTRIBUTION WIDTH 14.1 % (11.7-14.4)
[2020-06-30 19:07] LABS: ALANINE AMINOTRANSFERASE 40 IU/L (0-55); ALBUMIN/GLOBULIN RATIO 1.4 (0.8-2.0); ALKALINE PHOSPHATASE 74 IU/L (40-150); BLOOD UREA NITROGEN 17 mg/dL (7-26); BUN/CREATININE RATIO 23 (6-25); CALCIUM 8.7 mg/dL (8.4-10.2); CARBON DIOXIDE 22 mmol/L (22-29); CHLORIDE 108 mmol/L (98-107); CREATINE KINASE 100 IU/L (29-168); CREATININE, SERUM 0.75 mg/dL (0.57-1.11); EST GLOMERULAR FILTRATION RATE > 60 ML/MIN (60-); GLUCOSE 109 mg/dL (74-118); SODIUM 140 mmol/L (136-145)
[2020-06-30 19:15] LABS: CLARITY,URINE SL CLOUDY (CLEAR); COLOR,URINE ORANGE (YELLOW)
[2020-06-30 19:16] LABS: KETONES,URINE NEGATIVE (NEGATIVE); LEUKOCYTE ESTERASE ,URINE NEGATIVE (NEGATIVE); NITRITE,URINE NEGATIVE (NEGATIVE); PROTEIN,URINE DIPSTICK NEGATIVE (NEGATIVE); URINE UROBILINOGEN 0.2 mg/dL (0.2 - 1)
[2020-06-30 19:26] LABS: BACTERIA,URINE RARE /HPF; EPITHELIAL CELLS,URINE FEW /LPF
[2020-06-30 19:53] VITALS: BP 125/95
== END 2020-06-30 19:55 | disposition home or self-care (01) ==
LOC: ER 18:32
DX: M25.542 Pain in joints of left hand (principal); M25.541 Pain in joints of right hand; M25.562 Pain in left knee; M25.561 Pain in right knee; T36.8X5A Adverse effect of other systemic antibiotics, initial encounter; E03.9 Hypothyroidism, unspecified; R94.31 Abnormal electrocardiogram [ECG] [EKG]; Z86.73 Personal history of transient ischemic attack (TIA), and cerebral infarction without residual deficits
CPT/HCPCS: 36415; 71045; 80053; 81001; 82550; 82553; 84484; 85025; 93005; 99284

== ENCOUNTER 2024-02-01 18:36 | Emergency (ER) | payer MEDICARE, OTHER ==
[~2024-02-01] VITALS: Ht 157.5 cm; Wt 70.3 kg
[~2024-02-01 18:36] MED LIST changes: +CIPRODEX OTIC7.5 ML RIGHT EAR; +IBUPROFEN600 MG PO
[2024-02-01 19:05] VITALS: PULSE 97; RESP 18; TEMP 97.6; O2SAT 99
[2024-02-01] MEDS ORDERED: ONDANSETRON ODT4 MG SL (19:12)
== END 2024-02-01 19:05 | disposition home or self-care (01) ==
LOC: ER 18:42
DX: K08.89 Other specified disorders of teeth and supporting structures (principal); K02.9 Dental caries, unspecified; R11.0 Nausea; E03.9 Hypothyroidism, unspecified; Z86.73 Personal history of transient ischemic attack (TIA), and cerebral infarction without residual deficits
CPT/HCPCS: 99282